=== PATIENT | male | born 1960 | race Caucasian/White ===

== ENCOUNTER 2022-05-23 16:45 | Inpatient (IN) | payer BC, SELFPAY ==
[~2022-05-23] VITALS: Ht 180.3 cm; Wt 102.3 kg
[2022-05-23 17:17] LABS: BASOPHILS # (AUTO) 0.1 X10'3 (0-0.2); EOSINOPHILS % (AUTO) 0.1 % (0-6); LYMPHOCYTES # (AUTO) 1.8 X10'3 (1.1-4.8); MONOCYTES # (AUTO) 1.2 X10'3 (0-0.9)
[2022-05-23 17:18] LABS: BASOPHILS % (AUTO) 0.9 % (0-1); HEMATOCRIT 42.3 % (42.0-52.0); HEMOGLOBIN 14.2 g/dl (14.0-17.9); LYMPHOCYTES % (AUTO) 13.8 % (21-51); MEAN CORPUSCULAR HEMOGLOBIN 32.1 PG (27.0-31.0); MEAN CORPUSCULAR HGB CONC 33.6 g/dL (33.0-36.5); MEAN CORPUSCULAR VOLUME 95.6 FL (78-98); MONOCYTES % (AUTO) 9.3 % (2-12); NEUTROPHILS # (AUTO) 10.2 X10'3 (1.8-7.7); NEUTROPHILS % (AUTO) 75.9 % (42-75); PLATELET COUNT 213 X10'3 (140-440); RED BLOOD COUNT 4.42 X10'6 (4.70-6.10); RED CELL DISTRIBUTION WIDTH 14.3 % (11.5-14.5); WHITE BLOOD COUNT 13.4 X10'3 (4.5-11.0)
[2022-05-23 17:32] LABS: ALANINE AMINOTRANSFERASE 49 U/L (12-78); ALBUMIN 2.9 G/DL (3.4-5.0); ALBUMIN/GLOBULIN RATIO 1.1 (1.1-1.5); ALKALINE PHOSPHATASE 41 IU/L (46-116); ANION GAP 9 (8-16); ASPARTATE AMINO TRANSFERASE 16 U/L (10-37); BILIRUBIN,TOTAL 0.6 MG/DL (0.1-1.0); BLOOD UREA NITROGEN 26 MG/DL (7-18); CALCIUM 7.5 MG/DL (8.5-10.1); CHLORIDE 106 MMOL/L (99-107); CREATININE 1.13 MG/DL (0.60-1.10); GLUCOSE 131 MG/DL (70-104); POTASSIUM 3.6 MMOL/L (3.5-5.1); SODIUM 138 MMOL/L (135-145); TOTAL PROTEIN 5.6 G/DL (6.4-8.2); eGFR 66 ML/MIN
[2022-05-23 17:39] LABS: PLATELET ESTIMATE NORMAL; TOTAL CELLS COUNTED 100
[2022-05-23] MEDS ORDERED: nitroGLYCERIN 0.4mg SUBLingual tab SL PRN ×2 (17:40→20:30)
[2022-05-23] MEDS ORDERED: aspirin 81mg tab.chew PO ONE (17:40)
[2022-05-23] MEDS ORDERED: iohexol 350MG/ML 100ml bottle IV ONE (18:09)
[2022-05-23 18:27] LABS: D-DIMER 0.23 MG/L FEU (0-0.50)
[2022-05-23] MEDS ORDERED: mag hydrox/Alum hydrox/simeth 30ml oral suspension PO PRN (20:20)
[2022-05-23] MEDS ORDERED: HYDROcodone/acetaminophen 10/325mg tab PO PRN (20:20)
[2022-05-23] MEDS ORDERED: morphine 2 MG/ML inj. syringe IV PRN ×2 (20:20)
[2022-05-23] MEDS ORDERED: acetaminophen 325mg tablet PO PRN ×2 (20:20)
[2022-05-23] MEDS ORDERED: magnesium hydroxide 30ml (MOM) UD suspension PO PRN (20:20)
[2022-05-23] MEDS ORDERED: HYDROmorphone inj. 0.5 MG/0.5 ML DISP.SYRIN IV PRN (20:20)
[2022-05-23] MEDS ORDERED: HYDROcodone/acetaminophen 5mg/325mg tablet PO PRN (20:20)
[2022-05-23] MEDS ORDERED: ondansetron/PF 4mg/2ml inj IV PRN (20:20)
[2022-05-23] MEDS ORDERED: bisacodyl 10mg suppository rectal RC PRN (20:20)
[2022-05-23] MEDS ORDERED: ondansetron 4mg rapidly disintigrating tab PO PRN (20:20)
[2022-05-23] MEDS ORDERED: diphenhydrAMINE 50 mg/ml inj IV PRN (20:20)
[2022-05-23] MEDS ORDERED: diphenhydrAMINE 25mg capsule PO PRN (20:20)
[2022-05-23] MEDS ORDERED: metoprolol tartrate 1mg/ml inj IV PRN (20:30)
[2022-05-23] MEDS ORDERED: regadenoson 0.4mg/5ml syringe IV PRN (20:30)
[2022-05-23] MEDS ORDERED: aminophylline 250mg/10ml inj. IV PRN (20:30)
[2022-05-23] MEDS ORDERED: temazepam 15mg capsule PO PRN (21:00)
[2022-05-23 21:12] LABS: CREATINE KINASE 68 U/L (39-308); LIPASE 283 U/L (73-393); MAGNESIUM 2.6 MG/DL (1.5-2.4); PHOSPHORUS 2.9 MG/DL (2.3-4.5)
[2022-05-23 21:18] LABS: APTT 26 SECONDS (22-32)
[2022-05-23 21:34] LABS: LIPASE 321 U/L (73-393)
[2022-05-23 21:50] LABS: CREATINE KINASE 76 U/L (39-308)
[2022-05-23 22:01] LABS: CLARITY,URINE CLEAR (Clear); COLOR,URINE YELLOW (Yellow); GLUCOSE, URINE NEGATIVE (Neg); KETONES,URINE NEGATIVE (Neg); LEUKOCYTE ESTERASE ,URINE NEGATIVE (Neg); NITRITES, URINE NEGATIVE (Neg); OCCULT BLOOD,URINE TRACE-INTACT (Neg); PH,URINE 5.5 (4.8-8.0); PROTEIN,URINE NEGATIVE (Neg); UROBILINOGEN,URINE 0.2 E.U/dL (0.2-1.0)
[2022-05-23 22:10] LABS: UA COLLECTION TYPE CLN CATCH MIDSTREAM
[2022-05-23 22:11] LABS: BACTERIA,URINE NONE SEEN /HPF (Neg); RBC,URINE 0-2 /HPF (0-2); SQUAMOUS EPITHELIAL CELL,UR FEW /LPF (FEW); WBC,URINE NONE SEEN /HPF (0-4)
[2022-05-23 23:15] VITALS: BP 138/78
--- NOTE | 2022-05-23 23:15 | NUR ---
PATIENT ADMITTED TO ROOM 3023A FROM ER FOR CHEST PAIN. PLACED COMFORTABLE IN BED. VITAL SIGNS TAKEN AND RECORDED.
[2022-05-24] VITALS (8 sets, daily range): BP systolic 118–149; BP diastolic 63–86
[2022-05-24] MEDS: normal saline 1000ml 1,000 ML IV SCH ×2 (00:33→06:11)
[2022-05-24] MEDS: heparin, porcine 5000 units/ml vial SQ SCH ×2 (00:42→08:00)
[2022-05-24] MEDS ORDERED: LOSA50TA64 PO (05:16)
[2022-05-24] MEDS ORDERED: ATOR20TA66 PO (05:16)
[2022-05-24] MEDS ORDERED: VALA100031 PO (05:16)
--- NOTE | 2022-05-24 06:30 | NUR ---
Problems reprioritized. Patient report given, questions answered & plan of care reviewed with CARMINA BENZ.
--- NOTE | 2022-05-24 06:41 | NUR ---
Patient in room PCU 3023. I have received report from Kallie Arreguin RN and had the opportunity to ask questions and assume patient care.
[2022-05-24 06:43] LABS: BASOPHILS % (AUTO) 0.1 % (0-1); EOSINOPHILS # (AUTO) 0.1 X10'3 (0-0.9); EOSINOPHILS % (AUTO) 0.6 % (0-6); HEMATOCRIT 40.9 % (42.0-52.0); HEMOGLOBIN 13.8 g/dl (14.0-17.9); LYMPHOCYTES # (AUTO) 2.3 X10'3 (1.1-4.8); LYMPHOCYTES % (AUTO) 24.2 % (21-51); MEAN CORPUSCULAR HGB CONC 33.6 g/dL (33.0-36.5); MEAN CORPUSCULAR VOLUME 95.2 FL (78-98); MONOCYTES # (AUTO) 0.8 X10'3 (0-0.9); MONOCYTES % (AUTO) 8.4 % (2-12); NEUTROPHILS # (AUTO) 6.2 X10'3 (1.8-7.7); NEUTROPHILS % (AUTO) 66.7 % (42-75); PLATELET COUNT 176 X10'3 (140-440); RED CELL DISTRIBUTION WIDTH 14.4 % (11.5-14.5); WHITE BLOOD COUNT 9.3 X10'3 (4.5-11.0)
--- NOTE | 2022-05-24 07:01 | NUR ---
Covid Lab Result (+) Message to Azael MCNEIL Pager [phone] PAGER ID: [phone] MESSAGE: [phone] [facility] Lab Result: [id number] Covid Positive
[2022-05-24 07:08] LABS: ALANINE AMINOTRANSFERASE 62 U/L (12-78); ALBUMIN 2.7 G/DL (3.4-5.0); ALKALINE PHOSPHATASE 34 IU/L (46-116); ANION GAP 6 (8-16); ASPARTATE AMINO TRANSFERASE 23 U/L (10-37); BILIRUBIN,TOTAL 0.6 MG/DL (0.1-1.0); BLOOD UREA NITROGEN 20 MG/DL (7-18); BUN/CREATININE RATIO 22.5 (5.4-32.0); CALCIUM 7.5 MG/DL (8.5-10.1); CHLORIDE 110 MMOL/L (99-107); CHOL/HDL RATIO 2.5 (0.00-4.99); CHOLESTEROL 136 MG/DL (0-200); CREATININE 0.89 MG/DL (0.60-1.10); GLUCOSE 79 MG/DL (70-104); HDL CHOLESTEROL 55 MG/DL (35-60); LDL CHOLESTEROL 55 MG/DL (50-100); SODIUM 142 MMOL/L (135-145); TOTAL CARBON DIOXIDE 26.3 MMOL/L (24-32); TOTAL PROTEIN 5.4 G/DL (6.4-8.2); TRIGLYCERIDES 167 MG/DL (20-135); eGFR 87 ML/MIN
[2022-05-24] MEDS ORDERED: pantoprazole 40mg Tablet.DR PO SCH ×2 (07:30→08:35)
[2022-05-24] MEDS ORDERED: lisinopril 10 MG tablet PO SCH (08:00)
[2022-05-24] MEDS ORDERED: aspirin 81mg, enteric-coated 1 TAB TABLET.DR PO SCH (08:00)
[2022-05-24] MEDS ORDERED: atorvastatin 10mg tablet PO SCH (08:00)
[2022-05-24] MEDS ORDERED: nitroGLYCERIN 0.2mg/hour patch TD SCH (08:00)
[2022-05-24] MEDS ORDERED: docusate sod 100mg capsule PO SCH (08:00)
[2022-05-24] MEDS ORDERED: PANT40TA54 PO (11:27)
--- NOTE | 2022-05-24 13:37 | NUR ---
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 Written instructions visit [facility]. Alert, steady, no chest pain.
== END 2022-05-24 13:24 | disposition home or self-care (01) | DRG 392 ==
LOC: ER 16:46 → ED HOLD 20:24 → PCU 3S 23:10
PROVIDERS: ADMIT Family Medicine; ATTEND Internal Medicine
PROC: 4A02XM4 Measurement of Cardiac Total Activity, External Approach (ICD-10-PCS; principal; 2022-05-23)
PROC: 3E033HZ Introduction of Radioactive Substance into Peripheral Vein, Percutaneous Approach (ICD-10-PCS; 2022-05-23)
PROC: B32T1ZZ Computerized Tomography (CT Scan) of Left Pulmonary Artery using Low Osmolar Contrast (ICD-10-PCS; 2022-05-23)
PROC: B3201ZZ Computerized Tomography (CT Scan) of Thoracic Aorta using Low Osmolar Contrast (ICD-10-PCS; 2022-05-23)
PROC: B32S1ZZ Computerized Tomography (CT Scan) of Right Pulmonary Artery using Low Osmolar Contrast (ICD-10-PCS; 2022-05-23)
DX: K21.00 Gastro-esophageal reflux disease with esophagitis, without bleeding (principal); R07.2 Precordial pain; E78.00 Pure hypercholesterolemia, unspecified; R53.83 Other fatigue; I10 Essential (primary) hypertension; R00.1 Bradycardia, unspecified; Z88.0 Allergy status to penicillin; Z86.16 Personal history of COVID-19
CPT/HCPCS: 36415; 71045; 71275; 78452; 80053; 80061; 81001; 82550; 83036; 83690; 83735; 83880; 84100; 84443; 84484; 85007; 85025; 85379; 85610; 85730; 87081; 87635; 93017; 99285; A9500; G0378; J1644; J2785; J3490; J7030; Q9967